=== PATIENT | male | born 1950 | race Caucasian/White ===

== ENCOUNTER 2019-03-10 05:51 | Outpatient (CLI) | payer MEDICARE ==
[2019-03-10 09:33] LABS: Bacteria/HPF None Seen HPF (None Seen); Bilirubin Negative (Negative); Blood, Urine Negative (Negative); Clarity Clear (Clear); Glucose, Urine (Dipstick) Normal (Negative); Leukocyte Negative Leu/uL (Negative); Nitrite Negative (Negative); Protein, Urine (Dipstick) Negative (Neg-Trace); RBC/HPF 0-3 HPF (0-3); Squamous Epithelial None Seen HPF (0-3); Urobilinogen Normal mg/dL (Less than 2); WBC/HPF None Seen HPF (0-3)
[2019-03-10 09:37] LABS: #Eosinphils 0.1 thou/uL (0.0-0.7); #Lymphocytes 1.3 thou/uL (1.20-3.40); #Monocytes 0.5 thou/uL (0.11-0.59); %Basophils 0.7 % (0.0-1.0); %Eosinophils 2.1 % (0.0-10.0); %Lymphocytes 22.3 % (21.0-51.0); %Monocytes 8.1 % (0.0-10.0); %Neutrophils 66.8 % (42.0-75.0); Mean Corpuscular HGB CONC 33.7 g/dL (32.0-36.0); Mean Corpuscular Hemoglobin 32.1 pg (27.0-31.0); Mean Corpuscular Volume 95.3 fL (78.0-98.0); Platelet Count 316 thou/uL (130-400); RBC Distribution Width 12.4 % (11.5-14.5); Red Blood Cell (RBC) Count 4.96 mill/uL (4.70-6.10); White Blood Cell (WBC) Count 5.9 thou/uL (4.8-10.8)
[2019-03-10 10:12] LABS: Anion Gap 17 mmol/L (10-20); BUN (Urea Nitrogen) 5 mg/dL (8.4-25.7); Calc. Creatinine Clearance 0 mL/min (70-130); Carbon Dioxide 24 mmol/L (23-31); Chloride 98 mmol/L (98-107); Estimated GFR-MDRD Greater than 90; Glucose 90 mg/dL (80-115); Potassium 4.4 mmol/L (3.5-5.1); Sodium 135 mmol/L (136-145)
== END 2019-03-10 05:52 | disposition home or self-care (01) ==
LOC: LABBT 05:51
PROVIDERS: ATTEND Orthopaedic Surgery
DX: Z01.818 Encounter for other preprocedural examination (principal); M17.12 Unilateral primary osteoarthritis, left knee
CPT/HCPCS: 80048; 81001; 85025; 85610; 87081; 93005; 93010

== ENCOUNTER 2019-03-21 05:42 | Inpatient (IN) | payer MEDICARE ==
[2019-03-10 08:22] VITALS: BMI 28.3
[2019-03-21] MEDS ORDERED: Sodium Chloride 0.9% 100 ML ONE (05:59)
[2019-03-21] MEDS ORDERED: Tranexamic Acid 1,000 MG/10 ML VIAL ONE ×2 (05:59→09:37)
[2019-03-21] MEDS ORDERED: ceFAZolin Sodium (SDC) 2 GM/100 ML BAG ONE (05:59)
[2019-03-21] MEDS ORDERED: Vancomycin HCl 1.5 GM in Sodium Chloride 0.9% 250 ML 300 ML IVPB SCH ×2 (06:15→20:00)
[2019-03-21] MEDS ORDERED: Tranexamic Acid 1,000 MG in Sodium Chloride 0.9% 100 ML IVPB SCH ×2 (06:15→07:30)
[2019-03-21] MEDS ORDERED: Fentanyl 100 MCG/2 ML VIAL ONE ×2 (06:31→06:58)
[2019-03-21] MEDS ORDERED: Midazolam HCl 2 mg/2 ml Vial ONE (06:31)
[2019-03-21] MEDS ORDERED: Lidocaine 1% (PF) 30 ML VIAL ONE (06:31)
[2019-03-21] MEDS ORDERED: Bupivacaine PF 0.5% 30 ML VIAL ONE (06:45)
[2019-03-21] MEDS ORDERED: Ondansetron PF 4 MG/2 ML Vial IVP PRN ×2 (06:59→07:18)
[2019-03-21] MEDS ORDERED: Fentanyl 100 MCG/2 ML VIAL SLOW IVP PRN (06:59)
[2019-03-21] MEDS ORDERED: Promethazine HCl 25 MG/ML VIAL IM PRN ×3 (06:59→08:23)
[2019-03-21] MEDS ORDERED: Ropivacaine HCl/PF 250 ML in Premix Bag 1 BAG NERVE BLCK SCH (06:59)
[2019-03-21] MEDS ORDERED: Zolpidem Tartrate 5 MG TAB PO PRN ×2 (06:59→07:18)
[2019-03-21] MEDS ORDERED: traMADol HCl 50 MG TAB PO PRN ×2 (06:59)
[2019-03-21] MEDS ORDERED: Acetaminophen 325 MG TAB PO PRN (07:18)
[2019-03-21] MEDS ORDERED: diphenhydrAMINE 25 MG CAP PO PRN (07:18)
[2019-03-21] MEDS ORDERED: AMOXicillin 250 MG CAP PO PRN (07:21)
[2019-03-21] MEDS ORDERED: Ketorolac Tromethamine 30 MG/ML VIAL IVP PRN (08:23)
[2019-03-21] MEDS ORDERED: Promethazine HCl 25 MG/ML VIAL SLOW IVP PRN (08:23)
[2019-03-21] MEDS ORDERED: Ondansetron HCl/PF 4 MG/2 ML Vial IVP PRN (08:23)
--- NOTE | 2019-03-21 10:05 | OP ---
DATE OF PROCEDURE: 03/21/2019 NUTRITION INTERN: Galileo Bennett PA-C PREOPERATIVE DIAGNOSES: Left knee osteoarthrosis. POSTOPERATIVE DIAGNOSIS: Left knee osteoarthrosis. PROCEDURE PERFORMED: Left total knee replacement using myhomemove pinless navigation. ESTIMATED BLOOD LOSS: Minimal. ANESTHESIA: The patient had general anesthetic as well as a preoperative block. IMPLANTS: To the left knee, Henry Triathlon total knee system, the femur was a size 7 cruciate retaining femur. We used a size 6 primary tibial baseplate. We used a 6 x 9 mm CS X3 tibial bearing and an asymmetric 29 x 9 X3 patella. DISPOSITION: He did go to recovery room in stable condition. INDICATIONS: This is a 68-year-old active male, who has had years of pain, at this time wanted to have his knee replaced. PROCEDURE IN DETAIL: After all appropriate consent forms were explained and signed, the patient was taken back to the operating room and at this time was given general anesthetic. Once the level of anesthesia was appropriate, a well-padded tourniquet was placed on the left leg, and the leg was then prepped and draped in standard surgical fashion. The limb was exsanguinated and tourniquet taken up to 300 mmHg. Midline incision was made with a 10 blade down through the skin and subcutaneous tissue. Bovie electrocautery was used to coagulate any brisk venous bleeding. A new blade was used to make a medial parapatellar arthrotomy. Small subperiosteal release was performed medially and excess fat pad was removed. The knee was flexed up to gain access to the femur. The femur was navigated and distal femoral resection was made. Epicondylar access was used to align our sizing jig and this was pinned in place. We sized our femur to be a size 7 cruciate retaining femur. 4:1 cutting block was applied and pinned. Anterior and posterior chamfer cuts were then made. We navigated out our proximal tibia and made our proximal tibial resection. Spreaders were used to remove any posterior osteophytes off the back of the femur as well as remaining meniscal tissue. A long alignment edison was then used to achieve correct rotation of our tibial baseplate and a size 6 primary tibial baseplate was chosen. This was pinned in place. We trialed the polyethylene and we used a 6 x 9 mm CS X3 tibial bearing polyethylene gave us full extension and good stability throughout range of motion. Two towel clips and a saw were used to cut our patella. Three lug nuts were drilled and an asymmetric 29 x 9 X3 patella was trialed which sat nicely in the trochlear groove. We then drilled our femur and punched our tibia. All components were removed. The knee was thoroughly irrigated and dried. Cement was mixed into the cement gun on the back table. Components were then placed. The knee was held out in full extension until the cement had dried. All excess bone cement was removed. Multiple #2 Vicryl stitches as well as a Quill were used to close our extensor mechanism. 0 Quill followed by a running Monoderm was then used to close the skin. Surgicel glue was then used on the skin. Once this had dried, soft tissue dressing was applied to the limb, tourniquet was let down, and the toes pinked up nicely. The patient was then awakened and taken to the recovery room in stable condition. All counts were correct at the end of the case. The patient did receive preoperative IV antibiotics. The patient was injected with Marcaine for postoperative pain relief. Job ID: [id number] [facility]
[2019-03-21] MEDS: Sodium Chloride 0.9% 1,000 ML IV SCH ×2 (10:26→17:42)
[2019-03-21] MEDS: Amlodipine 10 MG TAB PO SCH (11:08)
[2019-03-21] MEDS: Aspirin 81 mg Enteric Coated Tablet PO SCH ×2 (11:08→19:58)
[2019-03-21] MEDS: Hydrochlorothiazide 25 MG TAB PO SCH (11:09)
[2019-03-21] MEDS: Lisinopril 20 MG TAB PO SCH (11:10)
[2019-03-21] MEDS: Calcium Carbonate + Vit D 1 TAB PO SCH (11:10)
[2019-03-21] MEDS: Cyanocobalamin (Vitamin B-12) 1,000 MCG TAB PO SCH (11:14)
[2019-03-21] MEDS: Ketorolac Tromethamine 30 MG/ML VIAL IVP SCH ×2 (14:11→19:58)
[2019-03-21] MEDS: CEFAZOLIN 2 GM, Admixture Fee 1 EACH in Sodium Chloride 0.9% 100 ML IVPB SCH ×2 (14:13→23:45)
[2019-03-21] MEDS: HYDROcodone/Acetaminophen 10/325 mg Tablet PO PRN (23:30)
[2019-03-22] MEDS: Ketorolac Tromethamine 30 MG/ML VIAL IVP SCH ×5 (00:57→23:42)
[2019-03-22] MEDS: Sodium Chloride 0.9% 1,000 ML IV SCH ×3 (02:05→23:43)
[2019-03-22 07:27] LABS: Hemoglobin 12.2 g/dL (14.0-18.0); Mean Corpuscular HGB CONC 33.5 g/dL (32.0-36.0); Mean Corpuscular Hemoglobin 32.6 pg (27.0-31.0); Mean Corpuscular Volume 97.3 fL (78.0-98.0); Mean Platelet Volume 6.9 fL (7.4-10.4); Platelet Count 178 thou/uL (130-400); RBC Distribution Width 11.9 % (11.5-14.5); Red Blood Cell (RBC) Count 3.75 mill/uL (4.70-6.10); White Blood Cell (WBC) Count 7.6 thou/uL (4.8-10.8)
[2019-03-22] MEDS: HYDROcodone/Acetaminophen 10/325 mg Tablet PO PRN ×2 (08:31→12:35)
[2019-03-22] MEDS: Multivitamin W/ Minerals 1 TAB PO SCH (08:32)
[2019-03-22] MEDS: Ferrous Gluconate 324 MG TAB PO SCH ×2 (08:32→16:47)
[2019-03-22] MEDS: Cyanocobalamin (Vitamin B-12) 1,000 MCG TAB PO SCH (08:34)
[2019-03-22] MEDS: Senokot S 8.6-50 MG TAB PO SCH ×2 (08:34→20:57)
[2019-03-22] MEDS: Amlodipine 10 MG TAB PO SCH (08:35)
[2019-03-22] MEDS: Calcium Carbonate + Vit D 1 TAB PO SCH (08:35)
[2019-03-22] MEDS: Lisinopril 20 MG TAB PO SCH (08:35)
[2019-03-22] MEDS: Aspirin 81 mg Enteric Coated Tablet PO SCH ×2 (08:35→20:57)
[2019-03-22] MEDS: Hydrochlorothiazide 25 MG TAB PO SCH (08:36)
[2019-03-23] MEDS: HYDROcodone/Acetaminophen 10/325 mg Tablet PO PRN ×2 (04:22→08:22)
[2019-03-23 05:33] LABS: Hemoglobin 11.7 g/dL (14.0-18.0); Mean Corpuscular HGB CONC 34.3 g/dL (32.0-36.0); Mean Corpuscular Hemoglobin 33.5 pg (27.0-31.0); Mean Corpuscular Volume 97.7 fL (78.0-98.0); Mean Platelet Volume 7.7 fL (7.4-10.4); Platelet Count 186 thou/uL (130-400); RBC Distribution Width 11.9 % (11.5-14.5)
[2019-03-23] MEDS: Ketorolac Tromethamine 30 MG/ML VIAL IVP SCH (05:36)
--- NOTE | 2019-03-23 07:49 | HP ---
CHIEF COMPLAINT: Severe left knee pain and osteoarthritis, with failed outpatient management. HISTORY OF PRESENT ILLNESS: Mr. Pinto is a very pleasant 68-year-old white gentleman, who presents for elective left total knee replacement. The patient reportedly has tried medical management including wearing the knee brace, oral medications, and glucosamine supplement, in addition to pain medication without improvement. The patient requiring surgical correction of severe left knee osteoarthritis. The patient with past medical history of hypertension, which is controlled on oral medications. I found the patient on the postoperative surgical unit resting comfortably in no acute distress. The patient tells me that he has been working with physical therapy and doing very well, was up putting pressure on the leg the same day after surgery, with the help of PT/OT. The patient does have expected postop pain. The patient has no other acute complaints. I discussed the patient's care including use of incentive spirometry every hour to avoid complications such as pneumonia. I discussed with the patient oral medications to help with bowel function. PAST MEDICAL HISTORY: 1. Severe left knee osteoarthritis. 2. Hypertension. REVIEW OF SYSTEMS: A 10-point review of systems was completed and negative unless mentioned in the history of present illness. MEDICATIONS: 1. Vitamin D3 5000 units p.o. daily. 2. Vitamin B12 5000 mcg p.o. daily. 3. Vitamin C 1000 mg p.o. daily. 4. Glucosamine 1 tab p.o. daily. 5. Calcium 1 tab p.o. daily. 6. Lisinopril 40 mg one tab p.o. daily. 7. Aspirin 81 mg one tab p.o. daily. 8. Amlodipine 10 mg p.o. daily. 9. Hydrochlorothiazide 25mg p.o. daily. ALLERGIES: NO KNOWN DRUG ALLERGIES. PHYSICAL EXAMINATION: VITAL SIGNS: Temperature 98.6, pulse 77, blood pressure 128/ 75, respirations 16, O2 saturation 96% on room air. GENERAL: The patient is alert and oriented with good insight into his clinical condition, he is lying in the chair with his knee extended in no apparent distress. HEENT: Head, normocephalic and atraumatic. Pupils are equally round and reactive to light and accommodation. Extraocular muscles intact Hearing grossly normal. Oral cavity and pharynx normal without inflammation or exudate. CARDIAC: Normal S1 and S2. No appreciated murmurs. Rhythm is regular. Rate is regular. LUNGS: Clear to auscultation bilaterally without wheezing, rhonchi, or rales. ABDOMEN: Soft, nontender, nondistended without guarding or rigidity. MUSCULOSKELETAL: Adequate alignment of the spine. EXTREMITIES: There is no significant edema in bilateral lower extremities. The left knee has an Bayron wrap bandage, which is clean and dry, and recently placed. NEUROLOGIC: Cranial nerves 2 through 12 are grossly intact. Strength and sensation grossly intact. No focal neurologic deficits. PSYCHIATRIC: The patient is alert and oriented x3, and has good insight into his medical condition. LABORATORY DATA: WBC 7.6, RBC 3.75, hemoglobin 12.2, hematocrit 36.5, MCV 97.3 , platelet count 178. ASSESSMENT: 1. Severe left knee osteoarthritis, has failed outpatient medical management, requiring left total knee repair on 03/13/[address] Thomas. 2. Knee pain and ataxia - secondary to above. 3. Osteoarthritis. 4. Hypertension. 5. Low normal hemoglobin. PLAN: 1. Admit to Orthopedic Unit. 2. Surgery following recommendations appreciated. 3. Perioperative care. 4. Pain control. 5. Medication to aid in bowel function 6. Continue the patient's home medications as able, BP medications resumed 7. Incentive spirometry 8. DVT PPX with SCDs 9. Trend H&H Thank you, Dr. Thomas, for allowing me to participate in the care of this patient. Job ID: [id number] [facility]
[2019-03-23] MEDS: Cyanocobalamin (Vitamin B-12) 1,000 MCG TAB PO SCH (08:17)
[2019-03-23] MEDS: Aspirin 81 mg Enteric Coated Tablet PO SCH (08:18)
[2019-03-23] MEDS: Calcium Carbonate + Vit D 1 TAB PO SCH (08:21)
[2019-03-23] MEDS: Hydrochlorothiazide 25 MG TAB PO SCH (08:21)
[2019-03-23] MEDS: Senokot S 8.6-50 MG TAB PO SCH (08:22)
[2019-03-23] MEDS: Amlodipine 10 MG TAB PO SCH (08:22)
[2019-03-23] MEDS: Ferrous Gluconate 324 MG TAB PO SCH (08:22)
[2019-03-23] MEDS: Multivitamin W/ Minerals 1 TAB PO SCH (08:22)
[2019-03-23] MEDS: Sodium Chloride 0.9% 1,000 ML IV SCH (08:25)
[2019-03-23] MEDS: Lisinopril 20 MG TAB PO SCH (08:25)
[2019-03-23 11:35] VITALS: BP 150/78; TEMP 97.8
--- NOTE | 2019-03-24 11:08 | DIS ---
DATE OF ADMISSION: 03/21/2019 DATE OF DISCHARGE: 03/23/2019 REASON FOR HOSPITALIZATION: Elective left total knee arthroplasty by Dr. Thomas. SIGNIFICANT FINDINGS: Severe left knee osteoarthritis, who has failed outpatient medical management. PROCEDURES PERFORMED AND TREATMENTS RENDERED: The patient underwent left total knee arthroplasty on 03/21/[address] Thomas. CONDITION ON DISCHARGE: Stable. SPECIFIC INSTRUCTIONS FOR THE PATIENT/FAMILY: 1. The patient is to follow up with outpatient physical therapy and occupational therapy as directed. 2. Keep incision clean and dry. 3. Pain control. 4. Symptomatic therapy for constipation including good bowel regimen, Docusate, prune juice, and MiraLAX was discussed with the patient in detail. 5. The patient is to use incentive spirometry q.1 hour while awake. 6. DVT prophylaxis. PAST MEDICAL HISTORY: 1. Severe left knee pain and osteoarthritis, failed outpatient management. 2. Hypertension. DISCHARGE MEDICATIONS: 1. Vitamin D3 5000 units one tablet p.o. daily. 2. Vitamin B12 5000 mcg p.o. daily. 3. Vitamin C 1000 mg p.o. daily. 4. Glucosamine 1 tablet p.o. daily. 5. Calcium 1 tablet p.o. daily. 6. Lisinopril 40 mg 1 tablet p.o. daily. 7. Aspirin 81 mg 1 tablet p.o. daily. 8. Amlodipine 10 mg p.o. daily. 9. Hydrochlorothiazide . HISTORY OF PRESENT ILLNESS: Mr. Pinto is a very pleasant 68-year-old white gentleman with past medical history of severe left knee pain and osteoarthritis, who has failed outpatient treatment , presents for elective total knee arthroplasty. The patient underwent operation on 03/21/2019. Surgery was successful, please see full operative report for details, there were no operative complications. The patient had a good postoperative recovery without event. The patient worked daily with physical therapy and progressed very well. The patient was recommended safe for discharge with outpatient physical therapy. The patient recommended to follow all postoperative instructions from Orthopedic Surgery. The patient recommended DVT prophylaxis as directed. The patient given recommendations on bowel regimen to avoid problems of constipation. The patient was issued incentive spirometry and recommended to use q.1 hour while awake over the 1 to 2 weeks. The patient was given a prescription for pain medications preoperatively and recommended to use as needed. The patient is recommended to follow up with primary care physician in the next 5 to 7 days. The patient recommended follow up with Orthopedic Surgery in the next 1 to 2 weeks. The patient recommended to return to the hospital for any new . Job ID: [id number]
== END 2019-03-23 14:38 | disposition home or self-care (01) | DRG 470 ==
LOC: SDC 05:42 → SJJU 07:18
PROVIDERS: ADMIT Orthopaedic Surgery; ATTEND Orthopaedic Surgery
PROC: 0SRD0J9 Replacement of Left Knee Joint with Synthetic Substitute, Cemented, Open Approach (ICD-10-PCS; principal; 2019-03-21)
DX: M17.12 Unilateral primary osteoarthritis, left knee (principal); I10 Essential (primary) hypertension; R27.0 Ataxia, unspecified; Z79.899 Other long term (current) drug therapy; Z79.82 Long term (current) use of aspirin
CPT/HCPCS: 36415; 85027; C1713; C1776; J0690; J1885; J2001; J2250; J2795; J3010; J3370; J3490; J7050; S0020